=== PATIENT | female | born 1945 | race Caucasian/White ===

== ENCOUNTER 2017-02-24 12:25 | Day surgery (SDC) | payer OTHER ==
[2017-02-24] MEDS ORDERED: LIDOCAINE 1% 5 ML SDV IV ONE (13:00)
[2017-02-24] MEDS ORDERED: LIDOCAINE 1% 30 ML SDV MISC ONE (13:30)
--- NOTE | 2017-02-24 14:14 | CPIP ---
[f rep st] INVASIVE CARDIAC PROCEDURE DATE OF PROCEDURE: 02/24/2017 INDICATIONS: The patient is 71 years old. She has a history of a single episode of paroxysmal atri al fibrillation. She has ongoing symptoms of palpitations. As of yet, with noninvasive monitoring, we have not been able to identify any specific arrhythmias associated with the patient's palpitatio ns. As a result, she is referred for implantation of Medtronic LINQ which will help facilitate long -term monitor. PROCEDURE: Implantation of a Medtronic LINQ. TECHNIQUE: Following informed consent, the patient was brought to the [facility] in a fasting state. The right chest was prepped and draped in usual sterile fashion. The 4th intercostal space was identifi ed and infiltrated with lidocaine. Using a #10 blade, a 1 cm incision was made. The Medtronic LINQ was then injected underneath the skin, and the wound closed with 2 matilda. There were no complica tions. DISPOSITION: The patient will be recovered here in the [facility]. She will be discharged home later ivan agustin /[id number]/MODL
== END 2017-02-24 14:20 | disposition home or self-care (01) ==
LOC: FCATH 12:25
PROVIDERS: ATTEND Internal Medicine Cardiovascular Disease
PROC: 0JH632Z Insertion of Monitoring Device into Chest Subcutaneous Tissue and Fascia, Percutaneous Approach (ICD-10-PCS; principal; 2017-02-24)
DX: R00.2 Palpitations (principal); I48.0 Paroxysmal atrial fibrillation
CPT/HCPCS: C1764